=== PATIENT | female | born 1980 | race Caucasian/White ===

== ENCOUNTER 2021-01-13 18:14 | Emergency (ER) | payer SELFPAY ==
[~2021-01-13] VITALS: Ht 160 cm; Wt 68.0 kg
[~2021-01-13 18:14] MED LIST: ACHD5005 PO; ARIP15TA; BSP5T PO; CLON0.5T3; CLON0.5T3 PO; CRS350T PO; DESV50TA PO; DIAZ-345 PO; DIAZ10TA PO; FAMO20TA5 PO; GBPN300C; HYDR1TAB66 PO; IBP800T PO; KETO-22 PO; KETO75CA PO; MELO-195; NAPR-243 PO; ONDA8TAB13 PO; ONDAN4ODT SL; ONDN4T PO; OXYC-12 PO; PRD20T PO; SULF1TAB35 PO; TRAM50TA2 PO; TRM50T PO; VALIUM
[2021-01-13] MEDS ORDERED: KETOROLAC 30 MG/ML VIAL IVP ONE (19:15)
[2021-01-13 19:21] LABS: BASOPHILS % (AUTO) 1 % (0-10); EOSINOPHILS # (AUTO) 0.1 10^3/uL (0.0-0.3); EOSINOPHILS % (AUTO) 1 % (0-10); HEMATOCRIT 37 % (35-52); HEMOGLOBIN 12.1 g/dL (11.5-16.0); LYMPHOCYTES % (AUTO) 41 % (12-44); MEAN CORPUSCULAR HEMOGLOBIN 31 pg (25-34); MEAN CORPUSCULAR HGB CONC 33 g/dL (32-36); MEAN CORPUSCULAR VOLUME 92 fL (80-99); MEAN PLATELET VOLUME 10.9 fL (9.0-12.2); MONOCYTES # (AUTO) 0.5 10^3/uL (0.0-1.0); MONOCYTES % (AUTO) 7 % (0-12); NEUTROPHILS # (AUTO) 3.7 10^3/uL (1.8-7.8); NEUTROPHILS % (AUTO) 51 % (42-75); PLATELET COUNT 233 10^3/uL (130-400); WHITE BLOOD COUNT 7.3 10^3/uL (4.3-11.0)
--- NOTE | 2021-01-13 19:24 | ED Headache ---
General Chief Complaint: Head/Cervical Problems Stated Complaint: HX OF CYST IN BRAIN/MIGRAINE Nursing Triage Note: PT AMB TO ROOM 6 PT CO OF MIGRAINE WERNER SINCE WEDNESDAY. STATES WAS SEEN [facility] ON WEDNESDAY, WEDNESDAY AND WENT THERE TODAY AND WAS TOLD TO GO TO ED FOR CT SCAN, PT STATES HAS HX OF BRAIN CYST APPROX 10 YEARS AGO. Source: patient Exam Limitations: no limitations (ADRIENNE HORAN STUDENT) History of Present Illness Date Seen by Provider: Jan 13, 2021 Time Seen by Provider: 18:32 Initial Comments This is Emily a 40 yo female that presented to the ED today via private vehicle with the chief complaint of migraine headache. Pt put the pain at a 4/10 on the pain scale primarily on the right side of her head and stated that it has occurred every day for the past two months. She stated that the pain is controlled with Excedrin but that it hasn't helped the pain since Wednesday. On Wednesday she described experiencing chills, diarrhea, body aches, stomach bruising, forgetfulness, leg weakness, and inability to sleep. She was at work when this occurred. She has went to [facility] for the past two days and received Tordol which she stated helped. After the visit today she was advised to go to the ED to receive a CT. Pt has a history of a "small cyst" in the brain that was diagnosed years ago. She was advised to see a neurologist which she has not because she doesn't have insurance. Last imaging was completed years ago. She moved back to [place] from [place] 1 year ago and reports having about 4 migraine headaches per year. She has tried taking Zyrtec to alleviate the symptoms but it hasn't helped. Pt was diagnosed with hyperglycemia but hasn't followed up with care or checked her blood sugar stating that she is a "vegetarian and is very healthy". 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 Timing/Duration: waxing and waning, other (2 months but worse this last Wednesday) Severity/Quality: moderate, constant Location: frontal, other (right side around the eye) Prior Headaches/Recent Trauma: chronic headaches Modifying Factors: improves with medication; worse with movement Associated Symptoms: confusion, fatigue, fever/chills, nasal congestion, nasal drainage, weakness (ADRIENNE HORAN STUDENT) Allergies and Home Medications Allergies Coded Allergies: hydrocodone (Unverified Adverse Reaction, Mild, VOMITTING, 08/23/09) Review of Systems Review of Systems Constitutional: chills, malaise Eyes: No Symptoms Reported Ears, Nose, Mouth, Throat: no symptoms reported Respiratory: no symptoms reported Cardiovascular: no symptoms reported Gastrointestinal: no symptoms reported Genitourinary: no symptoms reported Musculoskeletal: other (body aches) Skin: other (abdominal bruising) Psychiatric/Neurological: Headache (ADRIENNE HORAN [employer] STUDENT) Past Egnudzu-Chcmah-Pzgkdb Hx Patient Social History Tobacco Use?: No Substance use?: No Alcohol Use?: No Pt feels they are or have been: No (ADRIENNE HORAN [employer] STUDENT) Immunizations Up To Date Tetanus Booster (TDap): Less than 5yrs Second COVID19 Vaccination Fred: SEPTEMBER 2020 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: [employer] (ADRIENNE HORAN Free All [employer] SANKET) Past Medical History Adenoidectomy, Appendectomy, Tonsillectomy Asthma Reproductive Disorders: No Female Reproductive Disorders: Endometriosis, Ovarian Cyst Sexually Transmitted Disease: Yes (HERPES) Kidney Stones Polyps, Irritable Bowel Degenerate Disk Disease, Arthritis Loss of Vision: Denies Hearing Impairment: Denies Eczema (ADRIENNE HORAN [employer] STUDENT) Family Medical History Thyroid disease G8 SISTER Physical Exam Vital Signs Vital Signs - First Documented 01/13/21 18:20 Temp 36.6 Pulse 60 Resp 18 B/P (MAP) 107/78 (88) Pulse Ox 97 (MARYURI FIGUEROA MD) Vital Signs Capillary Refill : Less Than 3 Seconds (ADRIENNE HORAN [employer] STUDENT) Height, Weight, BMI Height: 5'4" Weight: 150lbs. oz. 68.101088da; 26.00 BMI Method:Stated General Appearance: WD/WN, mild distress HEENT: PERRL/EOMI, normal ENT inspection, TMs normal, pharynx normal, other (partial denture of right upper central incisor) Neck: non-tender, supple, normal inspection Cardiovascular: normal peripheral pulses, regular rate, rhythm, no edema, no gallop, no murmur Respiratory: chest non-tender, lungs clear, normal breath sounds, no respiratory distress, no accessory muscle use Gastrointestinal: normal bowel sounds, non tender, soft Extremities: normal range of motion, non-tender, normal inspection, no pedal edema, no calf tenderness, normal capillary refill Psychiatric: alert, oriented x 3 Crainal Nerves: normal hearing, normal speech, PERRL Coordination/Gait: normal finger to nose Motor/Sensory: no motor deficit, no sensory deficit, no pronator drift Skin: normal color, warm/dry Lymphatic: no adenopathy (ADRIENNE HORAN MED STUDENT) Progress/Results/Core Measures Results/Orders Lab Results Laboratory Tests Test 01/13/21 19:15 01/13/21 19:30 Range/Units White Blood Count 7.3 4.3-11.0 10^3/uL Red Blood Count 3.96 3.80-5.11 10^6/uL Hemoglobin 12.1 11.5-16.0 g/dL Hematocrit 37 35-52 % Mean Corpuscular Volume 92 80-99 fL Mean Corpuscular Hemoglobin 31 25-34 pg Mean Corpuscular Hemoglobin Concent 33 32-36 g/dL Red Cell Distribution Width 12.8 10.0-14.5 % Platelet Count 233 130-400 10^3/uL Mean Platelet Volume 10.9 9.0-12.2 fL Immature Granulocyte % (Auto) 0 % Neutrophils (%) (Auto) 51 42-75 % Lymphocytes (%) (Auto) 41 12-44 % Monocytes (%) (Auto) 7 0-12 % Eosinophils (%) (Auto) 1 0-10 % Basophils (%) (Auto) 1 0-10 % Neutrophils # (Auto) 3.7 1.8-7.8 10^3/uL Lymphocytes # (Auto) 3.0 1.0-4.0 10^3/uL Monocytes # (Auto) 0.5 0.0-1.0 10^3/uL Eosinophils # (Auto) 0.1 0.0-0.3 10^3/uL Basophils # (Auto) 0.0 0.0-0.1 10^3/uL Immature Granulocyte # (Auto) 0.0 0.0-0.1 10^3/uL Sodium Level 138 135-145 MMOL/L Potassium Level 3.3 L 3.6-5.0 MMOL/L Chloride Level 108 H 98-107 MMOL/L Carbon Dioxide Level 22 21-32 MMOL/L Anion Gap 8 5-14 MMOL/L Blood Urea Nitrogen 8 7-18 MG/DL Creatinine 0.71 0.60-1.30 MG/DL Estimat Glomerular Filtration Rate 92 BUN/Creatinine Ratio 11 Glucose Level 109 H 70-105 MG/DL Calcium Level 9.3 8.5-10.1 MG/DL Corrected Calcium 9.1 8.5-10.1 MG/DL Magnesium Level 2.7 H 1.6-2.4 MG/DL Total Bilirubin 0.3 0.1-1.0 MG/DL Aspartate Amino Transf (AST/SGOT) 20 5-34 U/L Alanine Aminotransferase (ALT/SGPT) 21 0-55 U/L Alkaline Phosphatase 66 40-136 U/L Total Protein 7.0 6.4-8.2 GM/DL Albumin 4.2 3.2-4.5 GM/DL TSH Tripp Testing 1.33 0.35-4.94 UIU/ML Serum Test, Qualitative NEGATIVE NEGATIVE Urine Color YELLOW Urine Clarity CLEAR Urine pH 6.5 5-9 Urine Specific [place] 1.010 L 1.016-1.022 Urine Protein NEGATIVE NEGATIVE Urine Glucose (UA) NEGATIVE NEGATIVE Urine Ketones NEGATIVE NEGATIVE Urine Nitrite NEGATIVE NEGATIVE Urine Bilirubin NEGATIVE NEGATIVE Urine Urobilinogen 0.2 < = 1.0 MG/DL Urine Leukocyte Esterase NEGATIVE NEGATIVE Urine RBC (Auto) NEGATIVE NEGATIVE Urine RBC 2-5 H /HPF Urine WBC 0-2 /HPF Urine Squamous Epithelial Cells 0-2 /HPF Urine Renal Epithelial Cells NONE /HPF Urine Crystals NONE /LPF Urine Bacteria NEGATIVE /HPF Urine Casts NONE /LPF Urine Mucus NEGATIVE /LPF Urine Culture Indicated NO (MARYURI FIGUEROA MD) My Orders Orders - MARYURI FIGUEROA MD Cbc With Automated Diff (01/13/21 18:56) Comprehensive Metabolic Panel (01/13/21 18:56) Hcg,Qualitative Serum (01/13/21 18:56) Magnesium (01/13/21 18:56) Thyroid Analyzer (01/13/21 18:56) Ua Culture If Indicated (01/13/21 18:56) Ed Iv/Invasive Line Start (01/13/21 18:56) Ketorolac Injection (Toradol Injection) (01/13/21 19:15) Ct Head Wo (01/13/21 20:20) Ct Sinus Complete Wo (01/13/21 20:20) (MARYURI FIGUEROA MD) Medications Given in ED Current Medications Medications Dose Ordered Sig/Serge Route Start Time Stop Time Status Last Admin Dose Admin Ketorolac Tromethamine 30 mg ONCE ONCE IVP 01/13/21 19:15 01/13/21 19:16 DC 01/13/21 19:21 30 MG (MARYURI FIGUEROA MD) Vital Signs/I&O 01/13/21 18:20 Temp 36.6 Pulse 60 Resp 18 B/P (MAP) 107/78 (88) Pulse Ox 97 (MARYURI FIGUEROA MD) Blood Pressure Mean: 88 Departure Impression Primary Impression: Recurrent headache Additional Impressions: Right sided facial pain Subarachnoid cyst Disposition: HOME, SELF-CARE Condition: Improved Departure-Patient Inst. Decision time for Depature: 22:47 (MARYURI FIGUEROA MD) Referrals: [facility] [place] (PCP/Family) Primary Care Physician Patient Instructions: Headache, Adult Add. Discharge Instructions: You may take Tylenol (acetaminophen) up to 1000 mg every 6 hours as needed and/or ibuprofen up to 600 mg every 6 hours as needed for recurrent headaches. Try tapering down on your caffeine consumption including the use of Excedrin as you may be getting rebound headaches when you withdraw from caffeine. Follow-up with your primary care provider soon as possible and discuss further work-up and management of headaches. Your primary care provider may wish to do further work-up such as checking additional labs like vitamin D levels etc. Your primary care provider may also have advice on preventive medications. Call with questions or concerns. Return to the ER if you have worsening symptoms. All discharge instructions reviewed with patient and/or family. Voiced understanding. ADRIENNE HORAN MED STUDENT Jan 13, 2021 19:24 MARYURI FIGUEROA MD Jan 13, 2021 22:49
[2021-01-13 19:35] LABS: BILIRUBIN,URINE NEGATIVE (NEGATIVE); CLARITY,URINE CLEAR; COLOR,URINE YELLOW; GLUCOSE, URINE (UA) NEGATIVE (NEGATIVE); KETONES,URINE NEGATIVE (NEGATIVE); LEUKOCYTE ESTERASE ,URINE NEGATIVE (NEGATIVE); NITRITE,URINE NEGATIVE (NEGATIVE); PH,URINE 6.5 (5-9); PROTEIN,URINE NEGATIVE (NEGATIVE)
[2021-01-13 19:43] LABS: BACTERIA,URINE NEGATIVE /HPF; SQUAMOUS EPITHELIAL CELL,UR 0-2 /HPF; WBC,URINE 0-2 /HPF
[2021-01-13 20:04] LABS: ALBUMIN 4.2 GM/DL (3.2-4.5); BILIRUBIN,TOTAL 0.3 MG/DL (0.1-1.0); CALCIUM 9.3 MG/DL (8.5-10.1); CREATININE SERUM 0.71 MG/DL (0.60-1.30); MAGNESIUM 2.7 MG/DL (1.6-2.4); POTASSIUM 3.3 MMOL/L (3.6-5.0); TSH (THYROID ANALYZER) 1.33 UIU/ML (0.35-4.94)
--- NOTE | 2021-01-13 21:08 | Diagnostic Imaging Report ---
PROCEDURE: CT sinuses without contrast TECHNIQUE: Multiple contiguous axial images were obtained through the sinuses without the use of intravenous contrast. Coronal and sagittal reformations were then performed. Auto Exposure Controls were utilized during the CT exam to meet ALARA standards for radiation dose reduction. INDICATION: Headache. FINDINGS: The frontal, ethmoid, sphenoid and maxillary sinuses are clear. The ostiomeatal complexes are patent. There are no conchal bullosa. There is no significant tortuosity of the nasal septum. Globes and intraorbital structures are unremarkable. The mastoid air cells are clear IMPRESSION: Unremarkable CT sinus. Dictated by: Dictated on workstation # [id number]
--- NOTE | 2021-01-13 21:13 | Diagnostic Imaging Report ---
PROCEDURE: CT head without contrast. TECHNIQUE: Multiple contiguous axial images were obtained through the brain without the use of intravenous contrast. Auto Exposure Controls were utilized during the CT exam to meet ALARA standards for radiation dose reduction. INDICATION: Headache. FINDINGS: The ventricles and sulci are within normal limits. No hydrocephalus. No midline shift. Appears to be a right posterior fossa arachnoid cyst. There is no other mass, hemorrhage or extra-axial fluid collection. The calvarium is intact. Sinuses and mastoid air cells are clear IMPRESSION: No acute intracranial abnormality. Incidental right posterior fossa subarachnoid cyst. Dictated by: Dictated on workstation # [id number]
[2021-01-14 01:44] VITALS: BP 113/81
== END 2021-01-13 22:53 | disposition home or self-care (01) ==
LOC: EDUNIT# 18:14 → ER 18:17
DX: R51.9 Headache, unspecified (principal); R93.0 Abnormal findings on diagnostic imaging of skull and head, not elsewhere classified; J45.909 Unspecified asthma, uncomplicated
CPT/HCPCS: 36415; 70450; 70486; 80053; 81000; 83735; 84443; 84703; 85025

== ENCOUNTER 2021-10-21 16:20 | Emergency (ER) | payer OTHER ==
[~2021-10-21] VITALS: Ht 160 cm; Wt 72.6 kg
[2021-10-21 16:30] VITALS: BP 115/70
[2021-10-21] MEDS ORDERED: KETOROLAC 30 MG/ML VIAL IM ONE (17:00)
[2021-10-21] MEDS ORDERED: NAPR-915 PO (17:04)
[2021-10-21] MEDS ORDERED: CYCL10TA25 PO (17:04)
--- NOTE | 2021-10-21 17:05 | ED Back Pain ---
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 SHE STATES THIS HAPPENED AROUND 1630 YESTERDAY. 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 She felt a sharp pain to the right side of lower back. Pain is worse with getting up and getting down or walking. Has been taking ibuprofen without much improvement. She denies of any bowel or urine incontinence or saddle paresthesia. No distal numbness and tingling to the lower extremities. She denies any fall. Patient is requesting to go back to work. This was a work comp injury. Denies fever, chills, nausea, vomiting, diarrhea. She is requesting something different for pain Allergies and Home Medications Allergies Coded Allergies: hydrocodone (Unverified Adverse Reaction, Mild, VOMITTING, 08/23/09) Patient Home Medication List Home Medication List Reviewed: Yes Cyclobenzaprine HCl (Cyclobenzaprine HCl) 10 Mg Tablet, 10 MG PO TID Prescribed by: ROSY VALDEZ on 10/21/211703 Naproxen (Naproxen) 500 Mg Tablet, 500 MG PO Q12H Prescribed by: ROSY VALDEZ on 10/21/211703 Review of Systems Constitutional: No chills, No diaphoresis, No malaise, No weakness EENTM: No blurred vision, No double vision Respiratory: No cough, No dyspnea on exertion Cardiovascular: No chest pain Gastrointestinal: No abdominal pain, No diarrhea, No nausea, No vomiting Genitourinary: No decreased output, No discharge Musculoskeletal: back pain, joint pain, muscle pain, muscle stiffness Skin: No change in color, No change in hair/nails All Other Systems Reviewed Negative Unless Noted: Yes Past Zaolehg-Tgonkk-Fkvhjt Hx Patient Social History Tobacco Use?: No Use of E-Cig and/or Vaping dev: No Substance use?: No Alcohol Use?: No Pt feels they are or have been: No Immunizations Up To Date Tetanus Booster (TDap): Less than 5yrs Influenza Vaccine Up-to-Date: Yes; Up-to-Date First/Initial COVID19 Vaccinat: SEPTEMBER 2020 Second COVID19 Vaccination Fred: OCTOBER 2020 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: [employer] Past Medical History Adenoidectomy, Appendectomy, Tonsillectomy Asthma Reproductive Disorders: No Female Reproductive Disorders: Endometriosis, Ovarian Cyst Sexually Transmitted Disease: Yes (HERPES) Kidney Stones Polyps, Irritable Bowel Degenerate Disk Disease, Arthritis Loss of Vision: Denies Hearing Impairment: Denies Eczema Family Medical History Thyroid disease G8 SISTER Physical Exam Vital Signs Vital Signs - First Documented 10/21/21 16:30 Temp 37.3 Pulse 62 Resp 18 B/P (MAP) 115/70 (85) Pulse Ox 98 O2 Delivery Room Air Capillary Refill : Less Than 3 Seconds Height, Weight, BMI Height: 5'4" Weight: 150lbs. oz. 68.685493ep; 28.00 BMI Method:Stated General Appearance: No Apparent Distress, WD/WN HEENT: PERRL/EOMI, TMs Normal, Normal ENT Inspection, Pharynx Normal Neck: Full Range of Motion, Normal Inspection, Non Tender, Supple Cardiovascular: Regular Rate, Rhythm, No Edema, No Gallop, No JVD, No Murmur Respiratory: Chest Non Tender, Lungs Clear, No Accessory Muscle Use Gastrointestinal: Normal Bowel Sounds, No Organomegaly, No Pulsatile Mass, Non Tender Back: Other (Right-sided lumbar paraspinal muscle tenderness. 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 Skin: Normal Color, Warm/Dry Progress/Results/Core Measures Results/Orders My Orders Orders - TIA ERWIN Ketorolac Injection (Toradol Injection) (10/21/21 17:00) Medications Given in ED Current Medications Medications Dose Ordered Sig/Serge Route Start Time Stop Time Status Last Admin Dose Admin Ketorolac Tromethamine 30 mg ONCE ONCE IM 10/21/21 17:00 10/21/21 17:01 DC 10/21/21 17:10 30 MG Vital Signs/I&O 10/21/21 10/21/21 16:30 17:15 Temp 37.3 Pulse 62 Resp 18 B/P (MAP) 115/70 (85) Pulse Ox 98 O2 Delivery Room Air Room Air Blood Pressure Mean: 85 Departure Communication (PCP) Patient without any mechanical falls. 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 Appears to be lumbar muscle strain. No bowel or urine cons or saddle paresthesia. I do not think imaging is needed at this time. Patient was given Toradol injection. Will discharge with anti-inflammatories and muscle relaxers. Discussed avoid lifting over 20 pounds for the next week. Patient was requesting to go back to work. Discussed avoid heavy lifting. Recommend rest, ice and anti-inflammatories. If any worsening symptoms such as radiculopathy type pain may need further imaging. Patient without any urinary symptoms. She has no swelling bruising or redness to the back. Provide return precautions. May benefit with physical therapy if need be. Discussed heavy lifting limitations over the next week Impression Primary Impression: Lumbar strain Disposition: 01 HOME, SELF-CARE Condition: Stable Departure-Patient Inst. Decision time for Depature: 17:02 Referrals: [facility] (PCP/Family) Primary Care Physician Patient Instructions: Low Back Pain ED Scripts Cyclobenzaprine HCl (Cyclobenzaprine HCl) 10 Mg Tablet 10 MG PO TID, #16 TAB Prov: TIA ERWIN 10/21/21 Naproxen (Naproxen) 500 Mg Tablet 500 MG PO Q12H, #20 TAB Prov: TIA ERWIN 10/21/21 TIA ERWIN Oct 21, 2021 17:05
== END 2021-10-21 17:15 | disposition home or self-care (01) ==
LOC: EDUNIT# 16:20 → ER 16:25
DX: S39.012A Strain of muscle, fascia and tendon of lower back, initial encounter (principal); W07.XXXA Fall from chair, initial encounter; Y93.F2 Activity, caregiving, lifting
CPT/HCPCS: 99284

== ENCOUNTER 2022-03-26 14:47 | Outpatient (RCR) | payer BC ==
[~2022-03-26 14:47] MED LIST changes: +CYCL10TA25 PO; +NAPR-915 PO
== END 2022-04-04 | disposition home or self-care (01) ==
PROVIDERS: ATTEND Nurse Practitioner Family
DX: M54.41 Lumbago with sciatica, right side (principal)

== ENCOUNTER 2022-04-24 10:05 | Outpatient (RCR) | payer BC | END 2022-05-05 | disposition home or self-care (01) | PROVIDERS: ATTEND Nurse Practitioner Family | DX: M54.41 Lumbago with sciatica, right side (principal); Z74.09 Other reduced mobility ==

== ENCOUNTER → 2022-07-28 | Outpatient (CLI) | payer BC, OTHER ==
--- NOTE | 2022-07-28 13:35 | Diagnostic Imaging Report ---
PROCEDURE: US Gallbladder. TECHNIQUE: Multiple real-time grayscale images were obtained over the right upper quadrant in various projections. INDICATION: Epigastric pain. FINDINGS: The gallbladder is normal. There is no intra- or extra-hepatic bile duct dilatation. The visible portions of the pancreas are normal. Its distal tail and lower head are obscured by gas. There is no ascites or fluid collection. The right kidney is unobstructed and normal. The portal vein is patent and showed normal hepatopetal directional flow. No ascites or fluid collection. No biliary dilatation. IMPRESSION: Normal right upper quadrant ultrasound. Dictated by: Dictated on workstation # [id number]
== END ==
LOC: RAD 12:56
PROVIDERS: ATTEND Nurse Practitioner
DX: R10.13 Epigastric pain (principal)
CPT/HCPCS: 76705

== ENCOUNTER 2022-08-12 05:41 | Outpatient (CLI) | payer BC ==
[~2022-08-12] VITALS: Ht 160 cm; Wt 76.5 kg
== END 2022-08-12 10:07 | disposition home or self-care (01) ==
LOC: PREOP 05:41
PROVIDERS: ATTEND Surgery
DX: Z01.818 Encounter for other preprocedural examination (principal)

== ENCOUNTER 2022-08-20 11:19 | Day surgery (SDC) | payer BC ==
[~2022-08-20] VITALS: Ht 160 cm; Wt 76.5 kg
[2022-08-20] MEDS ORDERED: LACTATED RINGERS 1,000 ML IV STA (11:26)
[2022-08-20] MEDS ORDERED: HURRICAINE EXT TUBE (BENZOCAINE) XX PRN (11:30)
[2022-08-20 11:40] VITALS: BP 105/65
[2022-08-20] MEDS ORDERED: PROPOFOL INJECTION 50 ML IV ONE (12:20)
[2022-08-20] MEDS ORDERED: MIDAZOLAM 2 MG/2 ML (VERSED) VIAL ONE (12:20)
--- NOTE | 2022-08-20 12:22 | Progress Note-Pre Operative ---
Pre-Operative Progress Note Date H&P Reviewed: August 20, 2022 Time H&P Reviewed: 12:21 History & Physical: H&P Reviewed, Patient Examed, No changes noted Pre-Operative Diagnosis: epigastric pain, rectal bleeding ALLISON LO DO August 20, 2022 12:22
--- NOTE | 2022-08-20 13:00 | Progress Note-Post Operative ---
Post-Operative Progess Note Surgeon (s)/Neon Light Installer (s) Surgeon ALLISON LO DO Neon Light Installer: na Pre-Operative Diagnosis epigastric pain, rectal bleeding Post-Operative Diagnosis Colon polyps, normal EGD Procedure & Operative Findings Date of Procedure 08/20/22 Procedure Performed/Findings EGD with biopsies, Colonoscopy with hot biopsy polypectomy x3 Anesthesia Type per HOSPITALITY MANAGER Estimated Blood Loss Estimated blood loss (mL): none Specimens/Packing Specimens Removed antrum, GE junction, Sigmoid x3 ALLISON LO DO August 20, 2022 13:00
--- NOTE | 2022-08-20 13:01 | Discharge Inst-Simple/Standard ---
Discharge Inst-Standard Patient Instructions/Follow Up Plan of Care/Instructions/FU: follow up with Dr. Kolb in two weeks Activity as Tolerated: Yes Discharge Diet: Regular Diet ALLISON KOLB DO August 20, 2022 13:01
[2022-08-20 13:05] VITALS: BP 103/67
[2022-08-20 13:15] VITALS: BP 115/72
[2022-08-20 13:26] VITALS: BP 115/72
--- NOTE | 2022-08-20 13:38 | Anesthesia-General Post-Op ---
MAC Patient Condition Mental Status/LOC: Same as Preop Cardiovascular: Satisfactory Nausea/Vomiting: Absent Respiratory: Satisfactory Pain: Controlled Complications: Absent Post Op Complications Complications None Follow Up Care/Instructions Patient Instructions None needed. Anesthesiology Discharge Order Discharge Order Patient is doing well, no complaints, stable vital signs, no apparent adverse anesthesia problems. No complications reported per nursing. MONI PALACIOS CRNA August 20, 2022 13:38
--- NOTE | 2022-08-20 14:49 | OPERATIVE REPORT ---
DATE OF SERVICE: 08/20/2022 PREOPERATIVE DIAGNOSES: Epigastric pain, rectal bleeding. POSTOPERATIVE DIAGNOSES: Colon polyps, normal esophagogastroduodenoscopy. PROCEDURES: EGD with biopsies, colonoscopy with hot biopsy polypectomy x3. SURGEON: Allison Kolb DO ANESTHESIA: Per WAGE ADJUSTER. ESTIMATED BLOOD LOSS: None. COMPLICATIONS: None. INDICATIONS: The patient is a 41-year-old female who has been having epigastric abdominal pain and some bleeding per rectum. She understands risks and benefits of procedure and wished to proceed. Consent was signed in chart. DESCRIPTION OF PROCEDURE: The patient was taken to endoscopy suite, placed in left lateral recumbent position. Timeout was performed. Scope was inserted in the mouth, down the esophagus, stomach, into the duodenum without difficulty. No polyps, masses or ulcerations in the duodenum. Scope was slowly retracted back to the stomach where it was further insufflated. No polyps, masses or ulcerations. Biopsy of the antrum was obtained. Scope was retroflexed noting no other pathology. Scope was returned to its normal position, slowly withdrawn until distal esophagus. No polyps, masses or ulcerations. Biopsy of the GE junction was obtained. Scope was slowly retracted back until completely removed, noting no other pathology. Digital rectal exam was performed. No palpable polyps, masses or ulcerations. Slight hemorrhoidal disease. Scope was inserted in the rectum and advanced all the way to the cecum with minimal difficulty. Prep was adequate [ ] irrigation and suction. Scope was then slowly retracted back. No polyps, masses or ulcerations within the cecum, ascending, transverse and descending colon. In the sigmoid colon, distal portion, there were 3 really small polyps, which hot biopsy polypectomy was performed. Scope was then continuously retracted back into the rectum where it was also retroflexed noting no other pathology. Scope was returned to its normal position, slowly withdrawn until completely removed. The patient tolerated the procedure well without complications, taken to recovery room in stable condition. RECOMMENDATIONS: The patient will need repeat colonoscopy in 5 years due to polyps. We will follow up in 2 weeks. I do not think her stomach is issue for her epigastric abdominal pain. She has already had a gallbladder ultrasound. We would consider HIDA scan. The patient will follow up in 2 weeks. Job ID: [id number] DocumentID: [id number] Dictated Date: 08/20/2022 13:02:13 Data Designer Date: 08/20/2022 14:47:00 Dictated By: ALLISON KOLB DO
== END 2022-08-20 13:58 | disposition home or self-care (01) ==
LOC: ENDO 11:19
PROVIDERS: ATTEND Surgery
DX: K62.5 Hemorrhage of anus and rectum (principal); K63.5 Polyp of colon; R10.13 Epigastric pain; Z87.891 Personal history of nicotine dependence
CPT/HCPCS: 84703